=== PATIENT | female | born 1985 | race American Indian/Alaskan Native ===

== ENCOUNTER 2021-05-29 10:59 | Emergency (ER) | payer SELFPAY ==
[2021-05-29 11:07] VITALS: BP 118/75
--- NOTE | 2021-05-29 11:15 | Emergency Department Report ---
ED HPI - General Chief complaint: Vaginal Bleeding Stated complaint: AND BLEEDING Time Seen by Provider: 05/29/21 11:08 Source: patient Mode of arrival: Ambulatory Limitations: No Limitations - History of Present Illness Initial comments: 36-year-old female presents to the ER today with complaints of vaginal bleeding during . Patient states that she is about 10 weeks based on last menstrual cycle which she thinks was around March 25, 2021. Patient states that she has not started her care visit yet. She is currently visiting from [place]. Her first appointment is scheduled for next week. Patient states that she started with light pink late yesterday but it eventually stopped. She then started bleeding about 2 hours ago, heavier than yesterday but similar to that of her menstrual cycle. She states that she was laying down at the time when the bleeding started. She denies any prior sexual activity or strenuous activity prior to the onset of the bleeding today. She denies any associated cramping, back pain or UTI symptoms or any abnormal vaginal discharge. She is G 11 P5 AB 6 (1 of which was twin gestation). She states she is O positive. Complaint: vaginal bleeding - Related Data Allergies Allergy/AdvReac Type Severity Reaction Status Date / Time No Known Allergies Allergy Unverified 05/29/21 11:00 ED Review of Systems ROS: Stated complaint: AND BLEEDING Other details as noted in HPI Comment: All other systems reviewed and negative Respiratory: denies: cough, shortness of breath, SOB with exertion, SOB at rest, wheezing Cardiovascular: denies: chest pain, palpitations Gastrointestinal: denies: abdominal pain, nausea, diarrhea, constipation, hematemesis, melena, hematochezia Genitourinary: other (abnormal vag bleeding ). denies: urgency, dysuria, frequency, hematuria, discharge, abnormal menses, dyspareunia Musculoskeletal: denies: back pain, joint swelling, arthralgia, myalgia Skin: denies: rash, lesions, change in color, change in hair/nails, pruritus Neurological: denies: headache, weakness, numbness, paresthesias, confusion, abnormal gait, vertigo Psychiatric: denies: anxiety, depression, auditory hallucinations, visual hallucinations, homicidal thoughts, suicidal thoughts Hematological/Lymphatic: denies: easy bleeding, easy bruising, swollen glands ED Past Medical Hx - Past Medical History Additional medical history: HYPERTHYROIDISM/ THROMBO CYPENIA/ LOW MAG LEVEL / PVC - Surgical History Past Surgical History?: No ED Physical Exam - General Limitations: No Limitations General appearance: alert, in no apparent distress - Head Head exam: Present: atraumatic, normocephalic, normal inspection - Eye Eye exam: Present: normal appearance, PERRL, EOMI Pupils: Present: normal accommodation - ENT ENT exam: Present: normal exam, mucous membranes moist, TM's normal bilaterally - Neck Neck exam: Present: normal inspection, full ROM - Respiratory Respiratory exam: Present: normal lung sounds bilaterally. Absent: respiratory distress, wheezes, rales, rhonchi, stridor - Cardiovascular Cardiovascular Exam: Present: regular rate, normal rhythm, normal heart sounds - GI/Abdominal GI/Abdominal exam: Present: soft. Absent: distended, tenderness, guarding, rebound - Neurological Exam Neurological exam: Present: alert, oriented X3, CN II-XII intact, normal gait - Psychiatric Psychiatric exam: Present: normal affect, normal mood - Skin Skin exam: Present: intact ED Course Vital Signs 05/29/21 11:06 Temperature 98.2 F Pulse Rate 84 Respiratory 15 Rate Blood Pressure 118/75 O2 Sat by Pulse 100 Oximetry ED Medical Decision Making - Lab Data Result diagrams: 05/29/21 11:26 05/29/21 11:26 - Radiology Data Radiology results: report reviewed Patient Name: KIMMY FAN Gender: Female Date of : 1985 Home Phone: Referring Provider: BRANT RICHMOND Organization: [facility] Accession Number: [id number] Requested Date: May 29, 2021 11:13 Report Status: Final Requested Procedure: 1 Procedure Description: US OB transvaginal Modality: US Findings Reporting MD: Micheline Molina Dictation Time: May 29, 2021 11:33 Public Records Researcher: Not available Electrical And Instrument Engineer Date: ULTRASOUND OBSTETRIC INDICATION / CLINICAL INFORMATION: vaginal bleeding. Clinical Gestational Age (GA) in weeks, days: Approximately 9 weeks 2 days TECHNIQUE: . Endovaginal COMPARISON: None available. FINDINGS: GESTATIONAL SAC: Well-defined oval shape and intrauterine in location. Gestational sac has a maximum diameter of 2.97 cm. YOLK SAC: Not clearly identified. EMBRYO/FETUS: There is a 5 mm oval structure within the gestational sac that could represent a pole. If so, estimated gestational age is 6 weeks 2 days. There is no cardiac activity identified if this is a pole. ADNEXA: 1.7 cm simple cyst is present within the right ovary. There is a complex 1.6 cm mass within the left ovary which may represent a collapsing/resolving corpus luteal cyst. FREE FLUID: None. ADDITIONAL FINDINGS: None. IMPRESSION: 1. There is an intrauterine gestational sac with questionable 5 mm pole without cardiac activity. Overall appearance is consistent with that of a nonviable IUP/possible blighted ovum. Correlation with hCG levels is recommended. Signer Name: Micheline Molina MD Signed: 05/29/2021 11:33 AM Workstation Name: [id number] - Medical Decision Making All labs reviewed -- CBC and CMP unremarkable. UA negative UTI. Quant HCG 9175. ED rh shows she is O positive and therefore no indication for rhogam today. OB US shows - 1. There is an intrauterine gestational sac with questionable 5 mm pole without cardiac activity. Overall appearance is consistent with that of a nonviable IUP/possible blighted ovum. Correlation with hCG levels is recommended. Patient currently resting comfortably, she is not in any acute distress and she reports no worsening bleeding since I last saw her. She is not toxic or ill appearing. She is neurologically intact with normal gait. Discussed results with patient. She is to return to [place] today and so gave her a copy of her US report and quant levels. She has an appt with her OB tuesday and recommended she keeps it. She currently has no pain and she has soft non tender abdomen. Discussed worsening signs and symptoms with her and return to ED immediately if they develop but otherwise f/u with her OB. Patient expressed understanding and agreed with plan. Patient stable at time of d/c. Critical care attestation.: If time is entered above; I have spent that time in minutes in the direct care of this critically ill patient, excluding procedure time. ED Disposition Clinical Impression: Threatened miscarriage in early Disposition: HOME / SELF CARE / HOMELESS Is pt being admited?: No Does the pt Need Aspirin: No Condition: Stable Instructions: Threatened Miscarriage, [id number] Additional Instructions: It is important that you follow-up with your CASH POSTING CLERK next week on return to [place]. Bring the results of the ultrasound with you. If you happen to not be returning home anytime soon, an CASH POSTING CLERK will be listed on your discharge instructions for you to follow-up locally. If you develop any pain I recommend just taking Tylenol. Return to the ER if at any point of bleeding significantly becomes worse or with any worsening symptoms. Referrals: YONIS STARKS MD [Staff Physician] - 3-5 Days Time of Disposition: 13:56
[2021-05-29 11:55] LABS: Basophils % (Auto) 0.4 % (0.0-1.8); Eosinophils # (Auto) 0.1 K/mm3 (0.0-0.4); Eosinophils % (Auto) 0.8 % (0.0-4.3); Hematocrit 38.5 % (30.3-42.9); Hemoglobin 12.5 gm/dl (10.1-14.3); Lymphocytes # (Auto) 1.6 K/mm3 (1.2-5.4); Lymphocytes % (Auto) 25.3 % (13.4-35.0); Mean Corpuscular HGB Conc 32 % (30-34); Mean Corpuscular Volume 94 fl (79-97); Monocytes # (Auto) 0.4 K/mm3 (0.0-0.8); Monocytes % (Auto) 6.4 % (0.0-7.3); Platelet Count 199 K/mm3 (140-440); Red Blood Count 4.09 M/mm3 (3.65-5.03); Red Cell Distribution Width 16.5 % (13.2-15.2)
[2021-05-29 12:03] LABS: Bilirubin,Urine NEG (Negative); Blood,Urine MOD (Negative); Color,Urine Yellow (Yellow); Mucus,Urine 1+ /HPF; Protein,Urine <15 mg/dL mg/dL (Negative); Urobilinogen,Urine < 2.0 mg/dL (<2.0)
[2021-05-29 12:20] LABS: Alanine Aminotransferase 26 units/L (7-56); Albumin 3.8 g/dL (3.9-5); Blood Urea Nitrogen 5 mg/dL (7-17); Calcium 8.7 mg/dL (8.4-10.2); Hemolysis Index 4
[2021-05-29 12:22] LABS: BUN/Creatinine Ratio 10
--- NOTE | 2021-05-29 12:38 | Ultrasound Report ---
ULTRASOUND OBSTETRIC INDICATION / CLINICAL INFORMATION: vaginal bleeding. Clinical Gestational Age (GA) in weeks, days: Approximately 9 weeks 2 days TECHNIQUE: . Endovaginal COMPARISON: None available. FINDINGS: GESTATIONAL SAC: Well-defined oval shape and intrauterine in location. Gestational sac has a maximum diameter of 2.97 cm. YOLK SAC: Not clearly identified. EMBRYO/FETUS: There is a 5 mm oval structure within the gestational sac that could represent a pole. If so, estimated gestational age is 6 weeks 2 days. There is no cardiac activity identified if this is a pole. ADNEXA: 1.7 cm simple cyst is present within the right ovary. There is a complex 1.6 cm mass within t he left ovary which may represent a collapsing/resolving corpus luteal cyst. FREE FLUID: None. ADDITIONAL FINDINGS: None. IMPRESSION: 1. There is an intrauterine gestational sac with questionable 5 mm pole without cardiac activit y. Overall appearance is consistent with that of a nonviable IUP/possible blighted ovum. Correlation with hCG levels is recommended. Signer Name: Micheline Molina MD Signed: 05/29/2021 12:33 PM Workstation Name: [id number]
== END 2021-05-29 14:50 | disposition home or self-care (01) ==
LOC: ED 10:59
DX: O20.0 Threatened abortion (principal); Z3A.10 10 weeks gestation of pregnancy
CPT/HCPCS: 36415; 76817; 80053; 81001; 84702; 85025; 86900; 86901; 99284